=== PATIENT | female | born 1935 | race Caucasian/White ===

== ENCOUNTER 2022-04-01 10:54 | Outpatient (CLI) | payer MEDICARE, BC, SELFPAY | END 2022-04-01 10:55 | disposition home or self-care (01) | LOC: RAD 11:00 | PROVIDERS: PCP Family Medicine; Visit Provider Internal Medicine | DX: Z95.2 Presence of prosthetic heart valve (principal); I07.1 Rheumatic tricuspid insufficiency | CPT/HCPCS: 93306 ==

== ENCOUNTER 2023-10-20 13:04 | Outpatient (CLI) | payer MEDICARE, BC, SELFPAY | END 2023-10-20 13:05 | disposition home or self-care (01) | PROVIDERS: PCP Family Medicine; Visit Provider Family Medicine | DX: M51.36 Other intervertebral disc degeneration, lumbar region (principal); M54.16 Radiculopathy, lumbar region | CPT/HCPCS: 64483; J1100; Q9966 ==

== ENCOUNTER 2024-01-09 10:09 | Outpatient (CLI) | payer MEDICARE, BC, SELFPAY | END 2024-01-09 10:10 | disposition home or self-care (01) | LOC: INJ CL 10:11 | PROVIDERS: PCP Family Medicine; Visit Provider Family Medicine | DX: M54.16 Radiculopathy, lumbar region (principal); M51.36 Other intervertebral disc degeneration, lumbar region | CPT/HCPCS: 64483; J0702; Q9966 ==